=== PATIENT | male | born 1960 | race African-American/Black ===

== ENCOUNTER 2018-01-05 07:14 | Day surgery (SDC) | payer OTHER ==
[~2018-01-05] VITALS: Ht 167.6 cm; Wt 54.4 kg
[2018-01-05] MEDS ORDERED: LIDOCAINE 2% 100 MG/5 ML UJET TP ONE (08:59)
[2018-01-05] MEDS ORDERED: KETOROLAC 30 MG/ML VIAL ONE (08:59)
== END 2018-01-05 10:09 | disposition home or self-care (01) ==
LOC: MDS 07:14 → MMU 07:18 → MDS 10:09
PROVIDERS: ATTEND Internal Medicine Gastroenterology
DX: Z12.11 Encounter for screening for malignant neoplasm of colon (principal); D12.3 Benign neoplasm of transverse colon; F17.210 Nicotine dependence, cigarettes, uncomplicated; E66.01 Morbid (severe) obesity due to excess calories; Z68.41 Body mass index [BMI] 40.0-44.9, adult
CPT/HCPCS: 45385; J1885